=== PATIENT | male | born 1960 | race Caucasian/White ===

== ENCOUNTER → 2017-01-31 | Emergency (ER) | payer OTHER ==
[~2017-01-31] MED LIST: SODIUM CHLORIDE 0.9% 500 ML INFUS.BAG IV ONE; TAMSULOSIN HCL 0.4 MG CAP.ER.24H (FP) ONE; TAMSULOSIN HCL 0.4 MG CAP.ER.24H (FP) PO ONE
--- NOTE | 2017-01-31 01:13 | PDOC ---
History of Present Illness - General History Source: Patient Exam Limitations: No Limitations - History of Present Illness Initial Comments: 01/31/17 01:33 The patient is a 57-year-old male with a significant past medical history of NIDDM (not on any medication now) and hypertension, and presents to the emergency department with abdominal and flank pain for 3 days. He reports that the pain is intermittent and located in the left abdominal region and radiates to the left back. He states that pain worsened this afternoon. He reports decreased urine output, dysuria, and diaphoresis. He states he has been taking Motrin with no significant relief. He states he had a kidney stone in the past and he underwent a lithotripsy at the time. The patient denies chest pain, shortness of breath, headache and dizziness. The patient denies fever, chills, nausea, vomit, diarrhea and constipation. The patient denies frequency, urgency and hematuria. Allergies: NKDA Past Surgical History: umbilical hernia repair Social History: Denies any toxic habits PCP: Dr. Urvashi Yañez Family PMHx: kidney stones (father), diabetes (mother) <Gloria Bhatt - Last Filed: 01/31/17 02:26> <Leanne Guillen - Last Filed: 01/31/17 04:17> - General Stated Complaint: PAIN FRONT BACK Time Seen by Provider: 01/31/17 01:06 Past History <Gloria Bhatt - Last Filed: 01/31/17 02:26> - Past Medical History Diabetes: Yes - Surgical History Abdominal Surgery: Yes (hernia repair) - Psycho/Social/Smoking Cessation Hx Anxiety: No Suicidal Ideation: No Smoking History: Never smoked Have you smoked in the past 12 months: No Hx Alcohol Use: No Drug/Substance Use Hx: No Substance Use Type: None <Leanne Guillen - Last Filed: 01/31/17 04:17> - Past Medical History Allergies/Adverse Reactions: Allergies Allergy/AdvReac Type Severity Reaction Status Date / Time No Known Allergies Allergy Verified 01/31/17 03:56 Home Medications: Ambulatory Orders Ibuprofen [Motrin -] 600 mg PO TID #30 tablet 01/31/17 Tamsulosin HCl [Flomax] 0.4 mg PO DAILY #14 cap.er.[id number] 01/31/17 Review of Systems - Review of Systems Able to Perform ROS?: Yes Comments:: 01/31/17 01:33 CONSTITUTIONAL: Present: (+) diaphoresis Absent: fever, chills, generalized weakness, malaise, loss of appetite HEENT: Absent: rhinorrhea, nasal congestion, throat pain, throat swelling, difficulty swallowing, mouth swelling, ear pain, eye pain, visual changes CARDIOVASCULAR: Absent: chest pain, syncope, palpitations, irregular heart rate, lightheadedness , peripheral edema RESPIRATORY: Absent: cough, shortness of breath, dyspnea with exertion, orthopnea, wheezing, stridor, hemoptysis GASTROINTESTINAL: Present: (+) abdominal pain Absent: abdominal distension, nausea, vomiting, diarrhea, constipation, melena, hematochezia GENITOURINARY: Present: (+) flank pain, (+) dysuria, (+) decreased urine output Absent: frequency, urgency, hematuria, genital pain MUSCULOSKELETAL: Absent: myalgia, arthralgia, joint swelling SKIN: Absent: rash, itching, pallor HEMATOLOGIC/IMMUNOLOGIC: Absent: easy bleeding, easy bruising, lymphadenopathy, frequent infections ENDOCRINE: Absent: unexplained weight gain, unexplained weight loss, heat intolerance, cold intolerance NEUROLOGIC: Absent: headache, focal weakness or paresthesias, dizziness, unsteady gait, seizure, mental status changes, bladder or bowel incontinence PSYCHIATRIC: Absent: anxiety, depression, suicidal or homicidal ideation, hallucinations. <Gloria Bhatt - Last Filed: 01/31/17 02:26> *Physical Exam - Physical Exam Comments: 01/31/17 01:34 GENERAL: Well developed, well nourished. Awake and alert. No acute distress. HEENT: Normocephalic, atraumatic. PERRLA, EOMI. No conjunctival pallor. Sclera are non- icteric. Moist mucous membranes. Oropharynx is clear. NECK: Supple. Full ROM. No JVD. Carotid pulses 2+ and symmetric, without bruits. No thyromegaly. No lymphadenopathy. CARDIOVASCULAR: Regular rate and rhythm. No murmurs, rubs, or gallops. Distal pulses are 2+ and symmetric. PULMONARY: No evidence of respiratory distress. Lungs clear to auscultation bilaterally. No wheezing, rales or rhonchi. ABDOMINAL: (+) Obese abdomen. Soft. Non-tender. Non-distended. No rebound or guarding. No organomegaly. Normoactive bowel sounds. MUSCULOSKELETAL Normal range of motion at all joints. No bony deformities or tenderness. No CVA tenderness. EXTREMITIES: No cyanosis. No clubbing. No edema. No calf tenderness. SKIN: Warm and dry. Normal capillary refill. No rashes. No jaundice. NEUROLOGICAL: Alert, awake, appropriate. Cranial nerves 2-12 intact. No deficits to light touch and temperature in face, upper extremities and lower extremities. No motor deficits in the in face, upper extremities and lower extremities. Normoreflexic in the upper and lower extremities. Normal speech. Toes are down- going bilaterally. Gait is normal without ataxia. PSYCHIATRIC: Cooperative. Good eye contact. Appropriate mood and affect. <Gloria Bhatt - Last Filed: 01/31/17 02:26> ED Treatment Course - LABORATORY CBC & Chemistry Diagram: 01/31/17 02:55 01/31/17 02:55 <Leanne Guillen - Last Filed: 01/31/17 04:17> Medical Decision Making - Medical Decision Making 01/31/17 02:44 Pt has a hx of HTN and DM and he comes with dysuria, and left flank pain radiating to the anterior abd. Pt states that he has had kidney stones in the past and that his dad has kidney stones. Mom has DM. Pt stopped taking his DM meds, as behzad was giving him a hard time. Pt has no pain on percussion of flank or abd. Pt also has no fever or chills. Pt's exam is normal. UA demonstrates Blood, but no glc in the urine. Labs are pending. CT scan abd/ pelvis also pending. 01/31/17 03:40 Patient Name: Loi Morales This is a preliminary report by imaging assistant professor of communication Exam : Noncontrast CT abdomen and pelvis Images: 502 Clinical indication: Left renal stone. Decreased urine output. Findings: The lung bases are clear. The liver, gallbladder, spleen and pancreas all have a normal unenhanced appearance. The adrenal glands are unremarkable. Nephrolithiasis is noted on the right. The right kidney is otherwise unremarkable. The left kidney is hydronephrotic with left hydroureter the contrast into the pelvis. An obstructing 2 mm calculus is present in the left UVJ (image 133). The urinary bladder is otherwise unremarkable. The prostate and seminal vesicles are unremarkable. There is a small fat-containing left inguinal hernia. The gastrointestinal tract does not appear obstructed. No thickened or dilated bowel is seen. The appendix has a normal appearance. There is no mesenteric infiltration. There is no free fluid. The patient appears to be status post umbilical hernia repair with a surgical mesh in place. Trace fluid is seen between the leaves of the mesh. Impression: Obstructing calculus in the left UVJ. THIS DOCUMENT HAS BEEN ELECTRONICALLY SIGNED 01/31/17 03:45 Pt refusing IVF and refusing to stay in the hospital. If his BUN/Cr are okay, I will send him home with flomax. He can follow with urology as an outpatient. <Leanne Guillen - Last Filed: 01/31/17 04:17> *DC/Admit/Observation/Transfer - Attestations Scribe Attestion: 01/31/17 01:34 Documentation prepared by Gloria Bhatt, acting as medical csr for Leanne Guillen MD. <Gloria Bhatt - Last Filed: 01/31/17 02:26> - Discharge Dispostion Admit: No <Leanne Guillen - Last Filed: 01/31/17 04:17> Diagnosis at time of Disposition: Calculus of kidney - Discharge Dispostion Disposition: HOME Condition at time of disposition: Stable - Referrals Referrals: Urvashi Yañez MD [Primary Care Provider] - Tanner Batista MD [Staff Physician] - - Patient Instructions Printed Discharge Instructions: DI for Kidney Stones, Hydronephrosis -- Adult
[2017-01-31 02:26] LABS: URINE APPEARANCE CLEAR; URINE BILIRUBIN NEGATIVE (NEGATIVE); URINE COLOR STRAW; URINE GLUCOSE (UA) NEGATIVE (NEGATIVE); URINE KETONE NEGATIVE (NEGATIVE); URINE LEUK ESTERASE NEGATIVE (NEGATIVE); URINE NITRITE NEGATIVE (NEGATIVE); URINE PROTEIN NEGATIVE (NEGATIVE); URINE UROBILINOGEN NEGATIVE E.U./dl (0.2-1.0)
[2017-01-31 02:30] LABS: URINE BLOOD 3+ (NEGATIVE)
[2017-01-31 02:42] LABS: URINE HYALINE CAST 3 /lpf; URINE MUCUS RARE
[2017-01-31 02:45] LABS: URINE RBC 10 /hpf (0-3); URINE WBC 2 /hpf (3-5)
[2017-01-31 03:31] LABS: BASOPHIL 0.9 % (0-2.0); EOSINOPHIL 2.1 % (0-4.5); MCH 27.5 pg (25.7-33.7); MCHC 32.1 g/dl (32.0-35.9); MEAN CELL VOLUME 85.7 fl (80-96); MEAN PLT VOLUME 8.5 fl (7.5-11.1); PLATELET COUNT 192 K/MM3 (134-434); RDW 14.2 % (11.9-15.9); WHITE BLOOD COUNT 11.3 K/mm3 (4.0-10.0)
[2017-01-31 03:56] VITALS: BMI 40.3
[2017-01-31 04:03] LABS: ALBUMIN 3.4 g/dl (3.4-5.0); ALK PHOS 76 U/L (45-117); ANION GAP 9 (8-16); BILIRUBIN,TOTAL 0.4 mg/dL (0.2-1.0); CALCIUM 8.5 mg/dL (8.5-10.1); CO2 27 mmol/L (21-32); COCKROFT - GAULT 145.24; CREATININE 0.9 mg/dL (0.7-1.3); GLUCOSE,RANDOM 177 mg/dL (74-106); SGOT/AST 26 U/L (15-37); SGPT/ALT 27 U/L (12-78); TOT PROT 7.6 g/dl (6.4-8.2)
[2017-01-31 04:37] VITALS: BP 116/77; PULSE 71; TEMP 97.9
== END | disposition home or self-care (01) ==
LOC: JER 00:57
DX: N13.2 Hydronephrosis with renal and ureteral calculous obstruction (principal); Z87.442 Personal history of urinary calculi; I10 Essential (primary) hypertension; E11.9 Type 2 diabetes mellitus without complications
CPT/HCPCS: 36415; 74176; 80053; 81003; 81015; 85025; 87086; 99283-25